=== PATIENT | male | born 1975 | race Caucasian/White ===

== ENCOUNTER 2017-05-10 16:39 | Emergency (ER) | payer OTHER ==
[~2017-05-10] VITALS: Ht 165.1 cm; Wt 70.3 kg
[~2017-05-10 16:39] MED LIST: KETO10TA2 PO; ORPH100T PO; PANADOL EXTRA500 MG PO
== END 2017-05-10 20:51 | disposition home or self-care (01) ==
LOC: ER 16:39
DX: M54.5 Low back pain (principal)

== ENCOUNTER 2017-08-29 15:58 | Emergency (ER) | payer OTHER ==
[~2017-08-29] VITALS: Ht 165.1 cm; Wt 70.3 kg
== END 2017-08-29 20:14 | disposition home or self-care (01) ==
LOC: ER 15:58
DX: J11.1 Influenza due to unidentified influenza virus with other respiratory manifestations (principal); B34.9 Viral infection, unspecified

== ENCOUNTER 2020-12-23 08:00 | Outpatient (CLI) | payer OTHER | END 2020-12-23 08:30 | disposition home or self-care (01) | LOC: PPH VACUNA 08:00 | DX: Z23 Encounter for immunization (principal) ==

== ENCOUNTER → 2021-01-15 | Outpatient (CLI) | payer OTHER | END | disposition home or self-care (01) | LOC: PPH VACUNA 08:00 | PROVIDERS: ATTEND Emergency Medicine Pediatric Emergency Medicine | DX: Z23 Encounter for immunization (principal) ==

== ENCOUNTER 2023-04-26 16:36 | Emergency (ER) | payer OTHER ==
[~2023-04-26] VITALS: Ht 165.1 cm; Wt 62.6 kg
[2023-04-26 20:53] LABS: HEMATOCRIT 39.9 % (39.0-48.0); HEMOGLOBIN 13.7 g/dL (13-16.00); MEAN CELL VOLUME 94.5 fL (80.0-100.00); MEAN CORPUSCULAR HEMOGLOBIN 32.4 pg (27.00-32.0); MEAN CORPUSCULAR HGB CONC 34.3 g/dl (32.0-36.0); PLATELET COUNT 235 K/uL (150-450); RED BLOOD COUNT 4.22 M/uL (4.00-6.00); RED CELL DISTRIBUTION WIDTH 13.1 % (11.5-14.5)
[2023-04-26] MEDS ORDERED: ZITHROMAX500 MG PO (21:24)
== END 2023-04-26 21:27 | disposition home or self-care (01) ==
LOC: ER 16:37
PROVIDERS: Nurse Practitioner Family
DX: R53.81 Other malaise (principal); J00 Acute nasopharyngitis [common cold]; Z20.822 Contact with and (suspected) exposure to COVID-19